=== PATIENT | female | born 1975 | race Caucasian/White ===

== ENCOUNTER 2019-12-25 12:14 | Outpatient (REF) | payer OTHER, SELFPAY ==
[2019-12-25 12:54] LABS: COVID-19 Test Negative (Negative)
== END 2019-12-25 12:15 | disposition home or self-care (01) ==
LOC: HO.LAB 12:14
PROVIDERS: Visit Provider Internal Medicine
DX: Z20.828 Contact with and (suspected) exposure to other viral communicable diseases (principal)
CPT/HCPCS: 87635

== ENCOUNTER 2019-12-31 15:26 | Outpatient (REF) | payer OTHER, SELFPAY ==
[2019-12-31 17:08] LABS: SARS COV2 PCR INHOUSE NEGATIVE (Negative)
== END 2019-12-31 15:27 | disposition home or self-care (01) ==
LOC: HO.LAB 15:26
PROVIDERS: Visit Provider Internal Medicine
DX: Z20.828 Contact with and (suspected) exposure to other viral communicable diseases (principal)
CPT/HCPCS: 87635

== ENCOUNTER 2020-01-03 09:54 | Outpatient (REF) | payer OTHER, SELFPAY ==
[2020-01-03 10:12] LABS: COVID-19 Test Negative (Negative)
== END 2020-01-03 09:55 | disposition home or self-care (01) ==
LOC: HO.LAB 09:54
PROVIDERS: Visit Provider Internal Medicine
DX: Z20.828 Contact with and (suspected) exposure to other viral communicable diseases (principal)
CPT/HCPCS: 87635

== ENCOUNTER 2020-02-10 15:39 | Outpatient (REF) | payer OTHER, SELFPAY ==
[2020-02-10 17:10] LABS: COVID-19 Test Negative (Negative)
== END 2020-02-10 15:40 | disposition home or self-care (01) ==
LOC: HO.EMPCOV 15:39
PROVIDERS: Visit Provider Internal Medicine
DX: Z20.828 Contact with and (suspected) exposure to other viral communicable diseases (principal)
CPT/HCPCS: 87635; C9803

== ENCOUNTER 2020-02-16 10:52 | Outpatient (REF) | payer OTHER, SELFPAY ==
[2020-02-16 11:17] LABS: COVID-19 Test Negative (Negative)
== END 2020-02-16 10:53 | disposition home or self-care (01) ==
LOC: HO.EMPCOV 10:52
PROVIDERS: Visit Provider Internal Medicine
DX: Z20.828 Contact with and (suspected) exposure to other viral communicable diseases (principal)
CPT/HCPCS: 87635; C9803

== ENCOUNTER 2020-02-16 14:36 | Outpatient (REF) | payer OTHER, SELFPAY | END 2020-02-16 14:37 | disposition home or self-care (01) | LOC: HO.LNP 14:36 | PROVIDERS: Visit Provider Physician Assistant | DX: J02.9 Acute pharyngitis, unspecified (principal) | CPT/HCPCS: 87071; 87880 ==

== ENCOUNTER 2021-03-14 14:02 | Outpatient (REF) | payer OTHER, SELFPAY ==
[2021-03-14 14:27] LABS: COVID-19 Test Negative (Negative)
== END 2021-03-14 14:03 | disposition home or self-care (01) ==
LOC: HO.LAB 14:02
PROVIDERS: Visit Provider Internal Medicine
DX: Z20.822 Contact with and (suspected) exposure to COVID-19 (principal)
CPT/HCPCS: 36415; 87635

== ENCOUNTER 2021-11-10 15:09 | Outpatient (REF) | payer OTHER, SELFPAY ==
--- NOTE | ~2021-11-10 | XR_ITS ---
EXAMINATION: XR FOOT, RIGHT CLINICAL INFORMATION: Pain COMPARISON: None TECHNIQUE: AP, lateral, and oblique views of the right foot. FINDINGS: Bone alignment is normal. There is a nondisplaced fracture of the proximal phalanx of the fifth toe. No other fracture is seen. Joint spaces are normal. Soft tissues are normal. XR/XR foot RT min 3V IMPRESSION: Nondisplaced fracture through the proximal phalanx of the fifth toe. 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
== END 2021-11-10 15:10 | disposition home or self-care (01) ==
LOC: HO.XRAY 15:09
PROVIDERS: PCP Nurse Practitioner Family; Visit Provider Nurse Practitioner Family
DX: M79.671 Pain in right foot (principal)
CPT/HCPCS: 73630

== ENCOUNTER 2022-04-06 10:16 | Outpatient (REF) | payer OTHER, SELFPAY ==
--- NOTE | ~2022-04-06 | FL_ITS ---
EXAMINATION: FL BARIUM SWALLOW CLINICAL INFORMATION: Dysphagia COMPARISON: None TECHNIQUE: Barium swallow examination is performed using fluoroscopic evaluation in addition to multiple fluoroscopic spot views. The patient is imaged both upright and prone and using both thick and thin sulfate along with effervescent granules. Fluoroscopy time: 1.8 minutes DAP: 11.569 Gycm2 Images: 71 FINDINGS: There is normal oral bolus control and transfer. Normal posterior tilt of the epiglottis with elevation of the hyoid. No cricopharyngeal abnormality. The 13 mm barium tablet was swallowed without difficulty, freely passing into the stomach. The esophagus was normal in course, caliber, and contour. There was normal distensibility with no fixed segment of narrowing. No focal mucosal abnormality was identified. Mild esophageal dysmotility was observed. Contrast passed freely across the gastroesophageal junction into the stomach. No significant hiatal hernia. No gastroesophageal reflux was observed. FL/FL barium swallow IMPRESSION: Mild esophageal dysmotility is visualized. Otherwise unremarkable esophagram.
== END 2022-04-06 10:17 | disposition home or self-care (01) ==
LOC: HO.XRAY 10:16
PROVIDERS: PCP Nurse Practitioner Family; Visit Provider Physician Assistant
DX: R13.10 Dysphagia, unspecified (principal)
CPT/HCPCS: 74220

== ENCOUNTER 2022-04-20 11:00 | Outpatient (REF) | payer OTHER, SELFPAY ==
--- NOTE | ~2022-04-20 | XR_ITS ---
EXAMINATION: XR LUMBOSACRAL SPINE CLINICAL INFORMATION: Back ache. COMPARISON: CT scan of the abdomen and pelvis dated 10/18/2018. TECHNIQUE: Three views of the lumbosacral spine. FINDINGS: The vertebral bodies and posterior elements are normal. The disc spaces are preserved and the vertebral alignment is normal. The paraspinal soft tissues are normal. XR/XR lumbar spine 2-3V IMPRESSION: Unremarkable lumbar spine.
== END 2022-04-20 11:01 | disposition home or self-care (01) ==
LOC: HO.XRAY 11:00
PROVIDERS: PCP Nurse Practitioner Family; Visit Provider Nurse Practitioner Family
DX: M54.9 Dorsalgia, unspecified (principal)
CPT/HCPCS: 72100

== ENCOUNTER 2022-05-17 08:34 | Day surgery (SDC) | payer OTHER, SELFPAY ==
[2022-05-12 11:07] VITALS: BMI 29.2
--- NOTE | 2022-05-16 12:16 | HO.ANESPROP2 ---
Documented by User: Mary Martel NP 05/16/22 12:16 HPI - Anesthesia Eval Consult details Narrative: 46yo F for Upper Endoscopy COUNT INCLUDES THE [facility] Active Problems Active Problems: All Active Problems (Updated 05/12/22 @ 11:06 by Chelsea Rogers RN) Dysphagia (Acute) Acid reflux (Acute) Past Medical History Medical History Dysphagia GERD (gastroesophageal reflux disease) History of colitis Surgical History Surgical History History of carpal tunnel release of both wrists History of meniscectomy of left knee History of repair of anterior cruciate ligament of left knee Hx of colonoscopy Social History Social History Household Members Other:: , 21 y/o daughter Alcohol intake: current Patient Tobacco Use Status: Former Tobacco user Quit Date: 15 yrs ago Use of substances other than those prescribed or required for medical reasons: No Are you DNR?: No Advance Directives: No Advance Directives Information Provided: Yes Current occupational status: employed 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[employer] 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 Allergies Allergy/AdvReac Type Severity Reaction Status Date / Time Penicillins Allergy Mild RASH Verified 05/17/22 08:50 Sulfa (Sulfonamide Allergy Mild Rash Verified 05/17/22 08:50 Antibiotics) sulfamethoxazole Allergy Mild RASH Verified 05/17/22 08:50 [From Bactrim] trimethoprim [From Bactrim] Allergy Mild RASH Verified 05/17/22 08:50 vancomycin Allergy Unknown Unknown Verified 05/17/22 08:50 Exam Exam Date and Time: May 16, 2022 1216 Height,Weight and Vital Signs: Height 5 ft 4 in Weight 77.111 kg Assessment and Plan Assessment Anesthesia Assessment: Chart Reviewed Documented by User: Rosario Petty MD 05/17/22 10:17 COUNT INCLUDES THE [facility] Past Medical History Medical History Dysphagia GERD (gastroesophageal reflux disease) History of colitis Family History Family history of problems with anesthesia: No Surgical History Surgical History History of carpal tunnel release of both wrists History of meniscectomy of left knee History of repair of anterior cruciate ligament of left knee Hx of colonoscopy History of Problems with Anesthesia: No Social History Social History Household Members Other:: , 21 y/o daughter Alcohol intake: current Patient Tobacco Use Status: Former Tobacco user Quit Date: 15 yrs ago Use of substances other than those prescribed or required for medical reasons: No Are you DNR?: No Advance Directives: No Advance Directives Information Provided: Yes Current occupational status: employed 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[employer] Allergies Allergy/AdvReac Type Severity Reaction Status Date / Time Penicillins Allergy Mild RASH Verified 05/17/22 08:50 Sulfa (Sulfonamide Allergy Mild Rash Verified 05/17/22 08:50 Antibiotics) sulfamethoxazole Allergy Mild RASH Verified 05/17/22 08:50 [From Bactrim] trimethoprim [From Bactrim] Allergy Mild RASH Verified 05/17/22 08:50 vancomycin Allergy Unknown Unknown Verified 05/17/22 08:50 Exam Height,Weight and Vital Signs: Height 5 ft 4 in Weight 77.111 kg Vital Signs Temp Pulse Resp BP Pulse Ox O2 Del Method 05/17/22 09:11 97.9 F 74 15 144/93 H 97 Room Air Pertinent Lab Results Pertinent Lab Results: Lab Results 05/17/22 Range/Units 08:50 Urine Test NEGATIVE (NEGATIVE) Airway Mallampati Class: II TM Dist: >3cm Neck ROM: Full Loose/Missing/Broken Teeth: No (Cap bottom front. Denies broken, loose, missing teeth) Heart: RRR Lungs: CTAB Assessment and Plan Assessment Anesthesia Assessment: Anesthesia Plan Discussed Final Anesthetic Review Family History of Problems with Anesthesia: No History of Problems with Anesthesia: No NPO: Yes ASA Class: II Final Preanesthetic Review: No Changes in Pt Med Stat, Meds/Allgs Chart Reviewed, Consent Obtained/Reviewed and Anes Risks/Benef Reviewed Patient Risk: Low Procedure Risk: Low Assessment/Block/Sedation in SS: Assess/Block/Sedation-SS Anesthetic Plan Anesthetic Plan: MAC: Disposition: Standard PACU
[2022-05-17 08:58] LABS: UPreg QC Valid YES; Urine Pregnancy NEGATIVE (NEGATIVE)
[2022-05-17 09:11] VITALS: BP 144/93; PULSE 74; RESP 15; TEMP 36.6; O2SAT 97
[2022-05-17] MEDS: Lactated Ringers 1,000 ML 100 ML IVCONT (09:18)
--- NOTE | 2022-05-17 10:15 | MHC.SHP ---
Pre-Procedural Eval Section A Date of Service: 05/17/22 Section B Chief Complaint: Dysphagia Relevant Family History (Specify if Yes): No Relevant Social History: None Present Medications: see Short Stay Collaborative assessment Medical History: No relevant PMH History of Previous Operations: No relevant previous surgery Allergies: Allergies Allergy/AdvReac Type Severity Reaction Status Date / Time Penicillins Allergy Mild RASH Verified 05/17/22 08:50 Sulfa (Sulfonamide Allergy Mild Rash Verified 05/17/22 08:50 Antibiotics) sulfamethoxazole Allergy Mild RASH Verified 05/17/22 08:50 [From Bactrim] trimethoprim [From Bactrim] Allergy Mild RASH Verified 05/17/22 08:50 vancomycin Allergy Unknown Unknown Verified 05/17/22 08:50 Review of Systems Review of Systems Comment: 10 point ROS negative except difficulty swallowing Exam Exam Comment: Gen appear: No acute distress HEENT: no icterus Chest: No overt resp distress Abd: soft, nontender, nondistended Psych: Stable affect, answering questions appropriately Neuro: A/Ox3 noted to move all extremities spontaneously Ext: no peripheral edema Plan Diagnosis/Plan: Unchanged I have reviewed the history and physical and performed a pertinent physical examination on my patient. No changes have occurred unless specified. Time Spent With Patient Time: Total time managing care of this patient today ____ minutes.
[2022-05-17 10:40] VITALS: BP 119/67; PULSE 71; RESP 12; TEMP 36.4; O2SAT 94
--- NOTE | 2022-05-17 10:52 | P.OP_ITS ---
Operative Note Operative Note Date of Service: 05/17/22 Narrative: Procedure: Esophagogastroduodenoscopy Endoscopist: Lacie Calabrese MD Indication: Dysphagia Anesthesia Provider: Daysi Wong CRNA Anesthesia Type: MAC ?? EGD Procedure:?? The procedure, indications, preparation and potential complications were reviewed with the patient, who indicated understanding and gave written informed consent to proceed. A physical exam was performed. The endoscope was introduced through the mouth, and advanced to the second part of duodenum. The mucosa was carefully examined on slow withdrawal of the endoscope. The patient tolerated the procedure well. There were no immediate complications.? ? EGD Findings:? * Esophagus:? Normal mucosa noted in the entire esophagus. The Z line was at 36cm. Middle and lower esophagus forceps biopsies were obtained to rule out eosinophilic esophagitis. * Stomach:? Normal mucosa was noted in the stomach. Random gastric biopsies were taken to rule out H Pylori infection. * Duodenum:? Normal mucosa was noted in the whole of the examined duodenum. Additional intervention: Soft tip Savary wire was introduced through the biopsy channel of the gastroscope and advanced to the antrum. The endoscope was then withdrawn and Savary Chris bougie was advanced over the wire. The esophagus was serially dilated from 18 mm to 19 mm. On relook, there was a small tear at 25 cm confirming successful dilation. EGD Impressions:? * Cricopharyngeal stenosis ( dilation) * Normal esophageal mucosa (biopsy) * Normal stomach (biopsy) * Normal duodenum ?? Recommendations:?? * Follow biopsy results. Our office will call or send a letter with results within 7-10 days. * Magic mouthwash to be taken p.r.n. for the next 2-3 days for any discomfort post dilation * If H pylori +, patient will be prescribed eradication therapy followed by test of cure. * Avoid NSAIDs. Above has been reviewed with the patient. Relevant educational hand outs were provided at discharge. ?
[2022-05-17 10:55] VITALS: BP 127/73; PULSE 68; RESP 16; O2SAT 97
[2022-05-17 11:05] VITALS: BP 127/73; PULSE 67; RESP 16; TEMP 36.6; O2SAT 97
== END 2022-05-17 11:38 | disposition home or self-care (01) ==
PROVIDERS: Nurse Practitioner; PCP Nurse Practitioner Family; Visit Provider Internal Medicine
PROC: 0DJ08ZZ Inspection of Upper Intestinal Tract, Via Natural or Artificial Opening Endoscopic (ICD-10-PCS; CPT 43235; principal; 2022-05-17 09:50)
DX: R13.10 Dysphagia, unspecified (principal); K22.2 Esophageal obstruction; K21.9 Gastro-esophageal reflux disease without esophagitis; Z79.82 Long term (current) use of aspirin; Z88.0 Allergy status to penicillin; Z88.1 Allergy status to other antibiotic agents; Z88.2 Allergy status to sulfonamides; Z87.891 Personal history of nicotine dependence
CPT/HCPCS: 43248; 43239; 81025; 88305; 88342; C1769; J2250

== ENCOUNTER → 2022-06-01 11:28 | Outpatient (BNVA) | payer OTHER, SELFPAY | PROVIDERS: PCP Nurse Practitioner Family; Visit Provider Physician Assistant | DX: Z13.89 Encounter for screening for other disorder (principal) ==

== ENCOUNTER 2022-09-28 14:00 | Outpatient (RCR) | payer OTHER, SELFPAY | END 2022-11-01 15:43 | disposition home or self-care (01) | LOC: HO.PT 14:00 | PROVIDERS: PCP Nurse Practitioner Family; Visit Provider Physician Assistant Surgical | DX: M70.61 Trochanteric bursitis, right hip (principal) | CPT/HCPCS: 97110; 97140; 97161 ==

== ENCOUNTER 2023-03-31 08:11 | Emergency (ER) | payer OTHER, SELFPAY ==
[2023-03-31 08:20] VITALS: BP 124/106; PULSE 84; RESP 16; TEMP 36.7; O2SAT 96; BMI 30.6
--- NOTE | 2023-03-31 08:20 | ED.ABDPAIN ---
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 States feels similar to previous episode of colitis and states I wanted to come in and get treated so it does not get out of control like last time. No vomiting, fevers, urinary symptoms. Prior to this episode she did have some constipation the last few days with straining. Denies recent travel, recent antibiotic use. No AC therapy. Last colonoscopy several years ago, per patient normal. Followed by GI ([facility]) Related Data Previous Rx's Medication Instructions Recorded pantoprazole 20 mg tablet,delayed 40 mg (2 x 20 mg) PO ONCE 30 days 02/16/22 release #60 tabs sucralfate 1 gram tablet 1 g PO QIDACHS PRN reflux 21 days 05/02/22 #90 tabs Magic Mouthwash 10 ml PO TID PRN throat discomfort 05/17/22 Diphen/Lido/Antacid 1:1:1 240 mL #90 mL suspension ciprofloxacin HCl 500 mg tablet 500 mg PO BID #10 tabs 03/31/23 (Cipro) metronidazole 500 mg tablet 500 mg PO Q8H 10 days #30 tabs 03/31/23 oxycodone 5 mg tablet 5 mg PO Q8H PRN pain #6 tabs 03/31/23 Allergies Allergy/AdvReac Type Severity Reaction Status Date / Time Penicillins Allergy Mild RASH Verified 06/01/22 11:37 Sulfa (Sulfonamide Allergy Mild Rash Verified 06/01/22 11:37 Antibiotics) sulfamethoxazole Allergy Mild RASH Verified 06/01/22 11:37 [From Bactrim] trimethoprim [From Bactrim] Allergy Mild RASH Verified 06/01/22 11:37 vancomycin Allergy Unknown Unknown Verified 06/01/22 11:37 Review of Systems Review of Systems Yes all other systems are reviewed and are negative Constitutional: Reports no additional constitutional complaints, Denies body ache(s), Denies chills, Denies fever(s), Denies headache(s) and Denies weakness Eyes: Reports no additional eye complaints and Denies change in vision Reports system reviewed and no additional complaints, except as documented, Denies dizziness, Denies headache(s), Denies nasal congestion, Denies nasal discharge and Denies neck pain Cardiovascular: Reports no additional cardiovascular complaints, Denies chest pain, Denies leg edema and Denies dyspnea Respiratory: Reports no additional respiratory complaints, Denies cough and Denies dyspnea Gastrointestinal: Reports no additional gastrointestinal complaints, Reports abdominal pain, Denies melena, Reports hematochezia, Reports diarrhea, Reports nausea and Denies vomiting Genitourinary: Reports no additional female genitourinary complaints and Denies urinary incontinence Musculoskeletal: Reports no additional musculoskeletal complaints, Denies back pain, Denies arthralgias, Denies joint swelling, Denies neck pain, Denies numbness and Denies tingling Skin/Breast: Reports system reviewed and no additional complaints, except as docu and Denies rash Reports system reviewed and no additional complaints, except as documented, Denies Abnormal speech present, Denies dizziness, Denies headache(s), Denies numbness, Denies tingling and Denies weakness PMFSH Past Medical History Attestation statement: The following information was validated with the patient. Source: old records reviewed and nursing notes reviewed Onset Date is defined in the Problem List Problems that require an onset date and time if occurred within 24 hrs of arrival to the ED Aortic Dissection and Rupture; Neurologic impairment; Cardiopulmonary Arrest; Endotracheal Intubation; Insertion or Replacement of Mechanical Circulatory Assist Device Medical History History of colitis Dysphagia GERD (gastroesophageal reflux disease) Surgical History History of esophagogastroduodenoscopy (EGD) History of carpal tunnel release of both wrists History of repair of anterior cruciate ligament of left knee History of meniscectomy of left knee Hx of colonoscopy Social History Social History Household Members Other:: , 21 y/o daughter Alcohol intake: current Patient Tobacco Use Status: Former Tobacco user Quit Date: 15 yrs ago Advance Directives: No Advance Directives Information Provided: Yes Current occupational status: employed 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[employer] Physical Exam ED Vital Signs: Vital Signs - 24 hr 03/31/23 08:20 Temperature 98.0 F Pulse Rate 84 Respiratory Rate 16 Blood Pressure 124/106 H Pulse Oximetry 96 Oxygen Delivery Method Room Air BMI result Body Mass Index 30.6 Const General: cooperative, healthy appearing, comfortable and no acute distress Orientation/consciousness: patient oriented x3 Limitations: no limitations HENMT Head: Yes normal to inspection Ears: hearing grossly normal bilaterally General nose exam: Normal external nose present Face and sinus: Yes normal facial exam Mouth: Normal oral and palatal mucosa present Throat: Yes posterior oropharynx normal Eyes General: appearance normal, both eyes and all related structures Pupils: Equal, round and reactive pupils present Neck Neck: Yes normal visual inspection Chest Chest palpation & inspection: normal inspection of the chest Resp Effort & Inspection: normal respiratory effort Auscultation: clear to auscultation bilaterally Cardio Rate: regular rate Rhythm: regular rhythm Peripheral pulses: Peripheral pulses 2+ throughout GI Inspection: Yes normal to inspection Palpation (GI): Soft to palpation, Tenderness to palpation present (GI) in the LLQ; with no rebound tenderness and no guarding Auscultation: normal bowel sounds Back/Spine/Pelvis Thoracic/Lumbar Spine: thoracic and lumbar spine normal to inspection Skin General skin exam: no rashes or lesions noted Neuro General: patient oriented x3, no focal motor deficits and normal sensation to monofilament Cranial nerves: Yes Equal, round and reactive pupils present Cognition (Neuro): normal cognition Speech: No Abnormal speech present Gait exam (Neuro): Normal gait present Motor exam (neuro): 5/5 motor strength present throughout Extrem General: Yes normal to inspection Course Course Course Narrative: 0930-labs show mild leukocytosis with no shift. Mildly elevated LFTs unchanged from baseline. Lactic is negative. Discussed findings with patient. Patient reports feels very similar to previous colitis episodes. I have low suspicion for ischemic colitis, bowel obstruction, appendicitis, perforation or abscess. We did discuss imaging but at this time patient does not desire to have a CT of the abdomen and pelvis. She feels that her pain is mild and she can return for any worsening signs or symptoms. She does have shank turner outpatient and is planning for a outpatient routine colonoscopy. I recommended she follow-up closely with them and return here for any change in her symptoms. 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 States feels similar to previous episode of colitis and states I wanted to come in and get treated so it does not get out of control like last time. No vomiting, fevers, urinary symptoms. Prior to this episode she did have some constipation the last few days with straining.? Denies recent travel, recent antibiotic use.? No AC therapy. Mild TTP to LLQ with no rebound or guarding VSS Will obtain labs, UA, give IVF. Patient feels she does not need analgesia at this time. We discussed imaging. At this time patient would like to hold on a CT, we will re-visit this when we get her labs back Differential Diagnosis Differential Diagnoses: The differential diagnosis associated with the presentation includes colitis low concern for ischemic colitis, diverticulitis, infectious diarrhea, appendicitis Admission/Observation Consideration of admission/observation: Escalation of care including admission/observation considered low suspicion for a surgical abdomen, active GIB requiring further imaging, surgery or GI consultation and or admission Lab Data [facility] Lab Attestation statement: I reviewed the patient's lab results. mild leukocytosis, mildly elevated LFTS (unchanged from baseline) 03/31/23 08:49 03/31/23 08:49 Labs: Lab Results 03/31/23 Range/Units 08:49 WBC 15.1 H (4.8-10.8) X10*3/uL RBC 4.72 (4.20-5.50) X10*6/uL Hgb 14.3 (12.0-16.0) g/dl Hct 42.6 (37.0-47.0) % MCV 90.3 (80.0-98.0) fL MCH 30.3 (27.0-33.0) pg MCHC 33.6 (31.0-35.0) g/dl RDW 12.2 (11.0-16.0) % Plt Count 342 (160-400) X10*3/uL MPV 9.0 L (9.4-12.3) fL Immature Gran % (Auto) 0.4 (0.0-0.4) % Neut % (Auto) 73.8 H (45-73) % Lymph % (Auto) 19.1 L (20-40) % [place] % (Auto) 5.9 (2-11) % Eos % (Auto) 0.5 (0-4) % Baso % (Auto) 0.3 (0-2) % Lymph # (Auto) 2.9 (1.2-4.9) X10*3/uL [place] # (Auto) 0.9 (0.1-1.2) X10*3/uL Eos # (Auto) 0.1 (0.0-0.4) X10*3/uL Baso # (Auto) 0.0 (0.0-0.2) X10*3/uL Abs Immat Gran (auto) 0.06 H (0.00-0.03) X10*3/uL Absolute Neuts (auto) 11.2 H (2.0-8.3) x10*3/uL Absolute Nucleated RBC 0.000 (0.0-0.012) X10*3/uL Nucleated RBC % (auto) 0.0 (0.0-0.2) /100WBC Sodium 138 (135-145) mmol/L Potassium 3.8 (3.3-5.1) mmol/L Chloride 103 (96-108) mmol/L Carbon Dioxide 25 (22-29) mmol/L Anion Gap 14 (12-20) BUN 11 (9-16) mg/dL Creatinine 0.77 (0.5-1.4) mg/dL Estim Creat Clear Calc 94.8 Estimated GFR > 60 Random Glucose 110 (60-115) mg/dL Lactic Acid 1.0 (0.5-2.0) mmol/L Calcium 9.9 (8.4-10.2) mg/dL Total Bilirubin 0.4 (0.0-1.0) mg/dL AST 25 (5-31) U/L ALT 36 H (0-31) U/L Alkaline Phosphatase 34 L (39-117) U/L Total Protein 7.5 (6.5-8.0) g/dL Albumin 4.0 (3.5-5.0) g/dL Lipase 31 (8-78) U/L Beta HCG, Quant < 2 mIU/mL External Record Review External record reviewed: Outpatient record Tests considered The following testing was considered but not selected: ct abdomen/pelvis-see discursion in course Prescription Management I considered prescription management with: Pain Medication and Antibiotic Medications Administered Discontinued Medications Generic Name Dose Route Start Last Admin Trade Name Freq PRN Reason Stop Dose Admin Sodium Chloride 1,000 mls @ 999 mls/hr 03/31/23 08:25 03/31/23 10:04 Ns IV 03/31/23 09:25 Infused .Q1H1M STA Infusion Discharge Plan Discharge Clinical Impression: Colitis Patient Disposition: Home, Self-Care Instructions: Colitis (ED) Additional Instructions: We discussed obtaining a CT scan of your abdomen/pelvis and decided to hold at this time. If you develop fever, vomiting, worsening pain or increasing bloody stools please return as discussed Increase fluids at home Follow-up with your shank turner Prescriptions: New metronidazole 500 mg tablet 500 mg PO Q8H 10 Days Qty: 30 0RF ciprofloxacin HCl [Cipro] 500 mg tablet 500 mg PO BID Qty: 10 0RF oxycodone 5 mg tablet 5 mg PO Q8H PRN (Reason: pain) Qty: 6 0RF Rx Instructions: Partial Fill upon patient request. No Action sucralfate 1 gram tablet 1 g PO QIDACHS PRN (Reason: reflux) 21 Days Qty: 90 1RF Magic Mouthwash Diphen/Lido/Antacid 1:1:1 240 mL suspension 10 ml PO TID PRN (Reason: throat discomfort) Qty: 90 0RF Rx Instructions: Lidocaine Viscous 2 % 80mL; diphenhydramine 12.5 mg/5 mL 80mL; aluminum-mag hydrox-simeth [id number]/5mL 80mL pantoprazole 20 mg tablet,delayed release (DR/EC) 40 mg PO ONCE 30 Days Qty: 60 6RF Referrals: Jacy Nascimento PA-C [Physician Nurse Practitioner Manager] - 2 weeks
[2023-03-31 08:52] LABS: MANUAL DIFF FLAG NO
[2023-03-31 08:56] LABS: Basophils Percent Auto 0.3 % (0-2); Eosinophils Absolute Auto 0.1 X10*3/uL (0.0-0.4); Eosinophils Percent Auto 0.5 % (0-4); Hematocrit 42.6 % (37.0-47.0); Hemoglobin 14.3 g/dl (12.0-16.0); Imm Gran Abs Auto 0.06 X10*3/uL (0.00-0.03); Imm Gran Pct Auto 0.4 % (0.0-0.4); Lymphocytes Absolute Auto 2.9 X10*3/uL (1.2-4.9); Lymphocytes Percent Auto 19.1 % (20-40); Mean Corpuscular HGB Conc 33.6 g/dl (31.0-35.0); Mean Corpuscular Hemoglobin 30.3 pg (27.0-33.0); Mean Corpuscular Volume 90.3 fL (80.0-98.0); Monocytes Absolute Auto 0.9 X10*3/uL (0.1-1.2); Monocytes Percent Auto 5.9 % (2-11); Neutrophils Absolute Auto 11.2 x10*3/uL (2.0-8.3); Neutrophils Percent Auto 73.8 % (45-73); Platelet Count 342 X10*3/uL (160-400); Red Blood Count 4.72 X10*6/uL (4.20-5.50); Red Cell Distribution Width 12.2 % (11.0-16.0); White Blood Count 15.1 X10*3/uL (4.8-10.8)
[2023-03-31] MEDS: 0.9 % Sodium Chloride 1,000 ML 999 ML IV (08:58)
[2023-03-31 09:15] LABS: Alanine Aminotransferase 36 U/L (0-31); Alkaline Phosphatase 34 U/L (39-117); Anion Gap 14 (12-20); Aspartate Amino Transferase 25 U/L (5-31); Bilirubin Total 0.4 mg/dL (0.0-1.0); Blood Urea Nitrogen 11 mg/dL (9-16); Calcium 9.9 mg/dL (8.4-10.2); Carbon Dioxide 25 mmol/L (22-29); Chloride 103 mmol/L (96-108); Creatinine Clr Calc Pharmacy 94.8; Estimated Glomerular Filt Rate > 60; Glucose Random 110 mg/dL (60-115); HCG Quantitative < 2 mIU/mL; Lipase 31 U/L (8-78); Potassium 3.8 mmol/L (3.3-5.1); Sodium 138 mmol/L (135-145); Total Protein 7.5 g/dL (6.5-8.0)
== END 2023-03-31 10:42 | disposition home or self-care (01) ==
PROVIDERS: Nurse Practitioner Family; Emergency Provider Student in an Organized Health Care Education/Training Program; PCP Nurse Practitioner Family
DX: K52.89 Other specified noninfective gastroenteritis and colitis (principal); R10.32 Left lower quadrant pain; K21.9 Gastro-esophageal reflux disease without esophagitis
CPT/HCPCS: 36415; 80053; 83605; 83690; 84702; 85025; 96360; 99284

== ENCOUNTER 2023-05-03 07:27 | Outpatient (AMB) | payer OTHER, SELFPAY ==
--- NOTE | 2023-05-03 07:31 | MHC.OFFVIS ---
Intake Vital Signs 05/03/23 07:32 Height 5 ft 4 in Weight 171 lb BMI 29.3 BP 120/65 Blood Pressure Location Lt brachial Position Sitting Pulse 79 Intake Visit Reasons: ER follow up Colitis Intake Note: Patient follow up for Colitis Patient denies any GI issues. 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 Accompanied by: Self / Same As Patient Allergies Penicillins Allergy (Mild, Verified 05/03/23 07:30) RASH Sulfa (Sulfonamide Antibiotics) Allergy (Mild, Verified 05/03/23 07:30) Rash sulfamethoxazole [From Bactrim] Allergy (Mild, Verified 05/03/23 07:30) RASH trimethoprim [From Bactrim] Allergy (Mild, Verified 05/03/23 07:30) RASH vancomycin Allergy (Unknown, Verified 05/03/23 07:30) Unknown Medication List - Last Reconciled 05/03/23 by Jacy Nascimento PA-C pantoprazole 40 mg (2 x 20 mg) PO ONCE 30 days sucralfate 1 g PO QIDACHS PRN 21 days HPI HPI Comments History of Present Illness Details A 47 y/o female- Ozempic- 6 wks ago-seemed to get constipation- however coloace QOD- good response- she then had LLQ abbdominal pain with bloody mucous stool-she had declined CT as her symptoms have exactly she previously was diagnosed with colitis 03/31/23-Seen in ED- Tx- flaggyl/ cipro- asymptomatic- continues w/ colace QOD- still on Ozempic- has lost about 10 pounds- She does admit to some work stress however she will be going per day him soon She has no nausea, vomiting, hematemesis, hematochezia , abdominal pain fever or chills Colonoscopy has been scheduled- Recap ED note a history of colitis several years ago which required admission to pain control and eventually improved with oral antibiotics here with complaints of waking with LLQ abdominal pain with several episodes of mucous/bloody diarrhea and nausea. States feels similar to previous episode of colitis and states I wanted to come in and get treated so it does not get out of control like last time. No vomiting, fevers, urinary symptoms. Prior to this episode she did have some constipation the last few days with straining.? Denies recent travel, recent antibiotic use.? No AC therapy. Mild TTP to LLQ with no rebound or guarding VSS Will obtain labs, UA, give IVF. Patient feels she does not need analgesia at this time. We discussed imaging. At this time patient would like to hold on a CT, we will re-visit this when we get her labs back [facility] Medical History (Updated 05/03/23 @ 12:42 by Jacy Nascimento PA-C) History of colitis Dysphagia GERD (gastroesophageal reflux disease) Surgical History History of esophagogastroduodenoscopy (EGD) History of carpal tunnel release of both wrists History of repair of anterior cruciate ligament of left knee History of meniscectomy of left knee Hx of colonoscopy Social History Household Members Other:: , 21 y/o daughter Alcohol intake: current Patient Tobacco Use Status: Former Tobacco user Quit Date: 15 yrs ago Current occupational status: employed 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[employer] Review of Systems Const All systems reviewed & are unremarkable except as noted in HPI and below Card Denies chest pain and Denies dyspnea Resp Denies dyspnea GI Denies abdominal pain, Denies GI cramping, Denies nausea and Denies vomiting Physical Exam Vital Signs: Last Vital Signs Pulse 79 05/03/23 07:32 BP 120/65 05/03/23 07:32 BMI result Body Mass Index 29.3 Const General: cooperative, healthy appearing and comfortable Orientation/consciousness: patient oriented x3 Limitations: no limitations Eyes Sclerae: sclerae normal Resp Effort & Inspection: normal respiratory effort and able to speak in complete sentences Auscultation: clear to auscultation bilaterally Cardio Rate: regular rate Rhythm: regular rhythm Heart sounds: S1 normal heart sound present Neuro General: patient oriented x3 Extrem General: Yes full ROM Psych Appearance: grossly normal and well kempt Mental Status: mental status grossly normal Speech and movement: Normal speech and movement present and Clear speech present Affect: normal affect Attitude: cooperative Thought process: Normal thought process present Thought content: Normal thought content present Insight: Good insight present (Psych) Judgement: Good judgement present (Psych) Results Reviewed Results Reviewed: Name: Angelita Barr Age/Sex: 46/F Attending: Lacie Calabrese MD : 1975 Submitted by: Lacie Calabrese MD Copies to: GEORGE ROMERO NP MR #: [id number] Status: [facility] Collected: 05/17/22 Location: [facility] Received: 05/17/22 Diagnosis A. Stomach, random, biopsy: Antral-type and oxyntic mucosa with mild chronic inactive inflammation; no Helicobacter organisms seen. B. Esophagus, lower, biopsy: Squamous mucosa within normal limits; no inflammation seen; negative for eosinophilic esophagitis. C. Esophagus, mid, biopsy: Squamous epithelium within normal limits; no inflammation seen; negative for eosinophilic esophagitis. Clinical History Pre-Op Dx: Aphagia, reflux Post-Op Dx: Upper esophageal sphincter stenosis Microscopic Description A-C. Microscopic sections reviewed. Immunostain for H. pylori is non-reactive (A). Material Received A: Random gastric bx's r/o H. pylori B: Lower esophagus bx's r/o eoe C: Mid esophagus bx's Gross Description Received in three parts. Part A: Received in formalin labeled Random gastric bx's, r/o H. pylori are four glistening, semitranslucent, aldana-pink, irregular and rectangular tissue fragments, ranging from 0.25 to 0.35 cm. in greatest dimension, which are submitted in toto in a single cassette labeled A. Part B: Received in formalin labeled Lower esophagus bx's are four glistening, semitranslucent, metcalf, white-pink irregular tissue fragments, ranging from 0.15 to 0.3 cm. in greatest dimension, which are submitted in toto in a single cassette labeled B. Part C: Received in formalin labeled Mid esophagus bx's are four glistening, semitranslucent, metcalf- white, irregular and rectangular tissue fragments, ranging from 0.25 to 0.3 cm. in greatest dimension, which are submitted in toto in a single cassette labeled C. CEDS Special studies ordered and performed: immunostain for H. pylori on A Patient: Cortney Age/Sex: 46/F MR#: [id number] Page 1 of 2 Assessment & Plan Assessment & Plan (1) Colitis: Comment: Very pleasant asymptomatic 47-year-old female previous diagnosis colitis-sx had recurred-nearly 2 years later Good historian Declined CT Treated Cipro Flagyl with very good for spoke Code(s): K52.9 - Noninfective gastroenteritis and colitis, unspecified Plan: She will continue to monitor for symptoms Colonoscopy as planned (2) History of colitis: Comment: Treated about 2 years ago Code(s): Z87.19 - Personal history of other diseases of the digestive system Plan: Treated Cipro Flagyl very good response Plan Will follow with colonoscopy-omit Ozempic dose 1 full week prior to procedure She will call with any questions or concerns Orders: Orders Erythrocyte Sedimentation Rate Today Z87.19 - Personal history of other diseases of the digestive system Complete Blood Count Auto Diff Today K52.9 - Noninfective gastroenteritis and colitis, unspecified Calprotectin, Fecal Today Z87.19 - Personal history of other diseases of the digestive system C Reactive Protein Today K52.9 - Noninfective gastroenteritis and colitis, unspecified Thyroid Stimulating Hormone Today Z87.19 - Personal history of other diseases of the digestive system Patient Instructions: Will follow with colonoscopy-she is aware Ozempic must be stopped 1 full week prior to procedure She will call with any questions or concerns Coding Level of Care Code Est Pt Level 4 (32506) Diagnoses Colitis K52.9 History of colitis Z87.19 Time Spent (min) 35
[2023-05-03 07:32] VITALS: BP 120/65; PULSE 79; BMI 29.3
== END 2023-05-03 08:44 | disposition home or self-care (01) ==
PROVIDERS: PCP Nurse Practitioner Family; Visit Provider Physician Assistant
DX: K52.9 Noninfective gastroenteritis and colitis, unspecified (principal); Z87.19 Personal history of other diseases of the digestive system
CPT/HCPCS: 99214

== ENCOUNTER → 2023-05-03 07:27 | Outpatient (BNVA) | payer OTHER, SELFPAY | PROVIDERS: PCP Nurse Practitioner Family; Visit Provider Physician Assistant ==

== ENCOUNTER 2023-07-12 11:51 | Day surgery (SDC) | payer OTHER, SELFPAY ==
[2023-07-10 10:55] VITALS: BMI 29.3
--- NOTE | 2023-07-11 08:29 | P.CONAN_ITS ---
Documented by User: Mary Martel NP 07/11/23 08:30 HPI - Anesthesia Eval Consult details Narrative: 48yo F for Colonoscopy Anesthesia Pre-Procedure Meds Is the patient on any of the following meds?: GLP1/DPP4 (Ozempic) PMFSH Active Problems Active Problems: All Active Problems History of colitis (Acute) Crohn's colitis (Acute) Abnormal findings on esophagogastroduodenoscopy (EGD) (Acute) Dysphagia (Acute) Acid reflux (Acute) Past Medical History Medical History History of colitis Dysphagia GERD (gastroesophageal reflux disease) Family History Family history of problems with anesthesia: No Surgical History Surgical History History of esophagogastroduodenoscopy (EGD) History of carpal tunnel release of both wrists History of repair of anterior cruciate ligament of left knee History of meniscectomy of left knee Hx of colonoscopy History of Problems with Anesthesia: No Social History Social History Household Members Other:: , 21 y/o daughter Alcohol intake: current Patient Tobacco Use Status: Former Tobacco user Quit Date: ~age 32 Tobacco use type: Cigarette Use of substances other than those prescribed or required for medical reasons: No Are you DNR?: No Advance Directives: No Advance Directives Information Provided: Yes Advance Directives on File: No Recently lost weight without trying: No Eating poorly because of decreased appetite: No Nutrition Risks: No Nutritional Risk Current occupational status: employed 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[employer] 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 Allergies Allergy/AdvReac Type Severity Reaction Status Date / Time Penicillins Allergy Mild RASH Verified 05/03/23 07:30 Sulfa (Sulfonamide Allergy Mild Rash Verified 05/03/23 07:30 Antibiotics) sulfamethoxazole Allergy Mild RASH Verified 05/03/23 07:30 [From Bactrim] trimethoprim [From Bactrim] Allergy Mild RASH Verified 05/03/23 07:30 vancomycin Allergy Unknown Unknown Verified 05/03/23 07:30 Home Medications ?Medication ?Instructions ?Recorded ?Confirmed ?Last Taken ?Type semaglutide 1 mg/dose (4 mg/3 mL) 1 mg subcut QWEEK 07/10/23 07/10/23 Unknown History subcutaneous pen injector (Ozempic) Exam Height,Weight and Vital Signs: Height 5 ft 4 in Weight 77.564 kg Assessment and Plan Assessment Anesthesia Assessment: Chart Reviewed Final Anesthetic Review Family History of Problems with Anesthesia: No History of Problems with Anesthesia: No Documented by User: Isabel Mancilla MD 07/12/23 13:14 [facility] Past Medical History Medical History History of colitis Dysphagia GERD (gastroesophageal reflux disease) Surgical History Surgical History History of esophagogastroduodenoscopy (EGD) History of carpal tunnel release of both wrists History of repair of anterior cruciate ligament of left knee History of meniscectomy of left knee Hx of colonoscopy Social History Social History Household Members Other:: , 21 y/o daughter Alcohol intake: current Patient Tobacco Use Status: Former Tobacco user Quit Date: ~age 32 Tobacco use type: Cigarette Use of substances other than those prescribed or required for medical reasons: No Are you DNR?: No Advance Directives: No Advance Directives Information Provided: Yes Advance Directives on File: No Recently lost weight without trying: No Eating poorly because of decreased appetite: No Nutrition Risks: No Nutritional Risk Current occupational status: employed 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[employer] Allergies Allergy/AdvReac Type Severity Reaction Status Date / Time Penicillins Allergy Mild RASH Verified 05/03/23 07:30 Sulfa (Sulfonamide Allergy Mild Rash Verified 05/03/23 07:30 Antibiotics) sulfamethoxazole Allergy Mild RASH Verified 05/03/23 07:30 [From Bactrim] trimethoprim [From Bactrim] Allergy Mild RASH Verified 05/03/23 07:30 vancomycin Allergy Unknown Unknown Verified 05/03/23 07:30 Home Medications ?Medication ?Instructions ?Recorded ?Confirmed ?Last Taken ?Type semaglutide 1 mg/dose (4 mg/3 mL) 1 mg subcut QWEEK 07/10/23 07/10/23 Unknown History subcutaneous pen injector (Ozempic) Exam Airway Mallampati Class: II Neck ROM: Full Loose/Missing/Broken Teeth: No Heart: RRR Lungs: CTA Assessment and Plan Assessment Anesthesia Assessment: Anesthesia Plan Discussed Final Anesthetic Review NPO: Yes ASA Class: II Final Preanesthetic Review: Meds/Allgs Chart Reviewed, Consent Obtained/Reviewed and Anes Risks/Benef Reviewed Patient Risk: Low Procedure Risk: Low Anesthetic Plan Anesthetic Plan: MAC: Disposition: Standard PACU
[2023-07-12 12:01] VITALS: BP 148/83; PULSE 99; RESP 16; TEMP 36.5; O2SAT 98; BMI 27.1
[2023-07-12 12:11] LABS: UPreg QC Valid YES; Urine Pregnancy NEGATIVE (NEGATIVE)
--- NOTE | 2023-07-12 12:50 | MHC.SHP ---
Pre-Procedural Eval Section A - 24 Hr Update-Section A only Date of Service: 07/12/23 Section B - Complete if H&P > 30 days Chief Complaint: Personal history of other diseases of the digestiv Details of Present Illness: PMH: History of colitis Dysphagia GERD (gastroesophageal reflux disease) Surgical History: History of esophagogastroduodenoscopy (EGD) History of carpal tunnel release of both wrists History of repair of anterior cruciate ligament of left knee History of meniscectomy of left knee Hx of colonoscopy Present Medications: see Short Stay Collaborative assessment Allergies: Allergies Allergy/AdvReac Type Severity Reaction Status Date / Time Penicillins Allergy Mild RASH Verified 05/03/23 07:30 Sulfa (Sulfonamide Allergy Mild Rash Verified 05/03/23 07:30 Antibiotics) sulfamethoxazole Allergy Mild RASH Verified 05/03/23 07:30 [From Bactrim] trimethoprim [From Bactrim] Allergy Mild RASH Verified 05/03/23 07:30 vancomycin Allergy Unknown Unknown Verified 05/03/23 07:30 Review of Systems Review of Systems Comment: Ten point ROS negative Exam Exam Comment: Gen appear: No acute distress HEENT: no icterus Chest: No overt resp distress Abd: soft, nontender, nondistended Psych: Stable affect, answering questions appropriately Neuro: A/Ox3 noted to move all extremities spontaneously Ext: no peripheral edema Plan Diagnosis/Plan: Unchanged I have reviewed the history and physical and performed a pertinent physical examination on my patient. No changes have occurred unless specified. Time Spent With Patient Time: Total time managing care of this patient today ____ minutes.
--- NOTE | 2023-07-12 14:45 | P.OP_ITS ---
Operative Note Operative Note Date of Service: 07/12/23 Narrative: Procedure: Colonoscopy Indication: Colitis Endoscopist: Lacie Calabrese MD Anesthesia Provider: Leona Marcelo CRNA Anesthesia type: MAC Instrument: Olympus [id number]-H190L Consent: Indication, risks vs benefits, and alternatives were discussed with the patient who gave written informed consent to proceed. EKG, pulse, pulse oximetry and blood pressure were monitored throughout the procedure. Please see anesthesia flowsheet. Procedure: The patient was brought to the procedure room and placed in the left lateral decubitus position. IV medications were administered by the anesthesia provider in attendance. A digital rectal exam was performed which was normal. A distal attachment cap was affixed to the tip of the scope and the colonoscope was then inserted through the anus and advanced through the colon to the cecum at 75 cm,and terminal ileum. Appendiceal orifice and ileocecal valve were identified. Mucosa was carefully examined under high definition white light as the instrument was slowly withdrawn in a retrograde panoramic fashion. Retroflexion was performed in rectum. The procedure was not difficult. There were no immediate obvious complications. The quality of the prep was BBPS: 2+3+3 = adequate Withdrawal time 10 minutes. Limitations: No limitations. Findings: Mucosa: Normal to cecum and terminal ileum. Cold forceps biopsies were taken from the right and left side of the colon and sent for histology. Protruding lesions: * Medium internal hemorrhoids without stigmata of recent bleeding. Impression: 1. Normal colon and terminal ileum mucosa 2. Internal hemorrhoids Recommendations: - Follow path results. - Repeat colonoscopy for asymptomatic colorectal cancer screening in 10 years. - No evidence of chronic colitis endoscopically, likely had infectious vs ischemic colitis episode
[2023-07-12 14:50] VITALS: BP 111/63; PULSE 93; RESP 16; TEMP 36.5; O2SAT 99
[2023-07-12 15:05] VITALS: BP 106/73; PULSE 85; RESP 18; TEMP 36.5; O2SAT 99
== END 2023-07-12 15:32 | disposition home or self-care (01) ==
PROVIDERS: Nurse Practitioner; PCP Registered Nurse; Visit Provider Internal Medicine
PROC: 0DJD8ZZ Inspection of Lower Intestinal Tract, Via Natural or Artificial Opening Endoscopic (ICD-10-PCS; CPT 45378; principal; 2023-07-12 14:10)
DX: K64.8 Other hemorrhoids (principal); Z87.19 Personal history of other diseases of the digestive system; Z88.0 Allergy status to penicillin; Z88.2 Allergy status to sulfonamides
CPT/HCPCS: 45380; 81025; 88305; J2704

== ENCOUNTER → 2023-07-12 11:51 | Outpatient (BNV) | payer OTHER, SELFPAY | PROVIDERS: PCP Registered Nurse; Visit Provider Internal Medicine | DX: K52.9 Noninfective gastroenteritis and colitis, unspecified (principal); K64.8 Other hemorrhoids | CPT/HCPCS: 45380 ==

== ENCOUNTER 2024-02-19 09:13 | Emergency (ER) | payer BC, SELFPAY ==
--- NOTE | ~2024-02-19 | XR_ITS ---
EXAMINATION: XR LUMBOSACRAL SPINE CLINICAL INFORMATION: pain COMPARISON: None available. TECHNIQUE: Three views of the lumbosacral spine. FINDINGS: No fracture or destructive process or alignment abnormality. Vertebral body heights and disc space heights are preserved. XR/XR lumbar spine 2-3V IMPRESSION: Unremarkable Electronically signed by: Vlad Loyd MD 02/19/2024 10:53 AM JANE
--- NOTE | ~2024-02-19 | CT_ITS ---
EXAMINATION: CT ABDOMEN AND PELVIS WITH CONTRAST CLINICAL INFORMATION: Bloody bowel movements, history of colitis, low back pain. COMPARISON: 10/18/2018. TECHNIQUE: Multidetector volumetric images were obtained from the superior aspect of the liver through the pubic symphysis following administration 85 mL of Omnipaque 350 intravenous contrast. Sagittal and coronal reformatted images were obtained on the technologist's workstation. Oral contrast: No This CT examination was performed using dose optimization techniques as appropriate, variously including the following: *Automated exposure control *Adjustment of mA and/or kV according to patient size (this includes techniques or standardized protocols for targeted exams where dose is matched to indication/reason for exam; i.e. extremities or head) *Use of iterative reconstruction technique DLP: 587 mGy-cm FINDINGS: LUNG BASES: Lung bases are clear. Heart size is normal. GE junction is normal. No effusions. LIVER, GALLBLADDER, AND BILIARY TREE: Liver is normal in size. There is diffuse fatty infiltration. Minimal fatty sparing abutting the gallbladder fossa. Otherwise, no focal liver abnormalities. Patent hepatic and portal veins. No intra or extrahepatic biliary dilatation. The gallbladder is unremarkable with no evidence of radiopaque gallstones, gallbladder wall thickening, or obvious pericholecystic inflammatory changes. PANCREAS: Unremarkable. SPLEEN: Unremarkable. ADRENAL GLANDS: Unremarkable. KIDNEYS AND URETERS: The kidneys are normal in size, shape, and attenuation. No hydronephrosis, hydroureter, or calculi seen. No perinephric stranding. BLADDER: Unremarkable. GASTROINTESTINAL TRACT: -The GE junction, stomach, duodenum, and small bowel appear normal. -There is mild wall thickening and pericolonic inflammatory changes involving the descending colon, sigmoid colon, and rectum, findings suggestive of inflammatory or infectious segmental colitis. -The right colon and transverse colon appear normal. There are rare sigmoid diverticula. ABDOMINAL WALL: -Normal. No hernia or abnormal lymph nodes. LYMPH NODES: Normal. VASCULAR: Unremarkable. PELVIC VISCERA: Uterus demonstrates a dorsal, mid uterine segment 1.9 cm fibroid. Uterus and adnexal structures otherwise normal. OSSEOUS STRUCTURES: -Unremarkable. -No SI joint arthropathy. CT/CT abdomen pelvis w IV con IMPRESSION: 1. Wall thickening and mild pericolonic inflammation/hyperemia involving the descending and sigmoid colon, and rectum, findings consistent with inflammatory or infectious segmental colitis. 2. Diffuse fatty infiltration of the liver. No focal liver abnormality. 3. Dorsal 1.9 cm uterine fibroid. 4. Additional ancillary findings as discussed in the body of the report. Fleischner guidelines were followed. Electronically signed by: Morris Levin MD 02/19/2024 04:19 PM JANE
[2024-02-19 09:36] VITALS: BP 138/74; PULSE 79; RESP 20; TEMP 36.6; O2SAT 98; BMI 27.3
[2024-02-19 10:12] LABS: Basophils Percent Auto 0.3 % (0-2); Eosinophils Absolute Auto 0.1 X10*3/uL (0.0-0.4); Eosinophils Percent Auto 1.4 % (0-4); Hematocrit 42.7 % (37.0-47.0); Hemoglobin 14.4 g/dl (12.0-16.0); Imm Gran Abs Auto 0.04 X10*3/uL (0.00-0.03); Imm Gran Pct Auto 0.4 % (0.0-0.4); Lymphocytes Absolute Auto 2.6 X10*3/uL (1.2-4.9); Lymphocytes Percent Auto 27.1 % (20-40); MANUAL DIFF FLAG NO; Mean Corpuscular HGB Conc 33.7 g/dl (31.0-35.0); Mean Corpuscular Hemoglobin 30.3 pg (27.0-33.0); Mean Corpuscular Volume 89.9 fL (80.0-98.0); Mean Platelet Volume 8.5 fL (9.4-12.3); Monocytes Absolute Auto 0.7 X10*3/uL (0.1-1.2); Monocytes Percent Auto 7.7 % (2-11); Neutrophils Percent Auto 63.1 % (45-73); Platelet Count 327 X10*3/uL (160-400); Red Blood Count 4.75 X10*6/uL (4.20-5.50); Red Cell Distribution Width 12.5 % (11.0-16.0); White Blood Count 9.6 X10*3/uL (4.8-10.8)
[2024-02-19 10:29] LABS: Anion Gap 15 (12-20); Blood Urea Nitrogen 10 mg/dL (9-16); Calcium 8.8 mg/dL (8.4-10.2); Carbon Dioxide 25 mmol/L (22-29); Chloride 103 mmol/L (96-108); Creatinine Clr Calc Pharmacy 76.8; Estimated Glomerular Filt Rate > 60; Glucose Random 98 mg/dL (60-115); Potassium 3.8 mmol/L (3.3-5.1); Sodium 139 mmol/L (135-145)
--- NOTE | 2024-02-19 13:22 | ED_ITS ---
HPI - General Adult General Chief complaint: General Medical Stated complaint: Back pain Time Seen by Provider: 02/19/24 13:11 Source: patient Mode of arrival: ambulatory Limitations: no limitations History of Present Illness ED Provider: Ervin Almaraz PA-C HPI narrative: 48-year-old female with a history of recurrent colitis, GERD who presents to the ER for evaluation of acute onset of lower back pain that started last night when she was wrapping Denis gifts on the ground. Patient reports when she went to get up she had immediate pain in her right lower back with limited range of motion. She took a Flexeril and Motrin with minimal relief. She reports this morning the back pain worsened. She then had 4 episodes of loose, bloody bowel movements with some nausea. No significant abdominal pain. No fever or chills. She is not on anticoagulation. She reports this is similar to her prior colitis presentations in the past. She denies any bowel or bladder incontinence, numbness or tingling in her groin, no fevers. MD complaint: Bloody bowel movements, low back pain Onset (ago): hour(s) Location: back Radiation: non-radiation Severity: severe Severity scale (1-10): 10 Quality: stabbing Pain Consistency: constant Relieving factors: rest Exacerbating factors: movement Associated symptoms: nausea/vomiting Treatments prior to arrival: none Related Data Home Medications ?Medication ?Instructions ?Recorded ?Confirmed semaglutide 1 mg/dose (4 mg/3 mL) 1 mg subcut QWEEK 07/10/23 07/10/23 subcutaneous pen injector (Ozempic) Previous Rx's ?Medication ?Instructions ?Recorded pantoprazole 20 mg tablet,delayed 40 mg (2 x 20 mg) PO ONCE 30 days 02/16/22 release #60 tabs sucralfate 1 gram tablet 1 g PO QIDACHS PRN reflux 21 days 05/02/22 #90 tabs levofloxacin 500 mg tablet 500 mg PO DAILY 7 days #7 tabs 02/19/24 methocarbamol 500 mg tablet 500 mg PO Q8H PRN muscle 02/19/24 spasticity #10 tabs metronidazole 500 mg tablet 500 mg PO BID 7 days #14 tabs 02/19/24 oxycodone 5 mg tablet 5 mg PO Q6H PRN severe pain (scale 02/19/24 score 7-10) #7 tabs Allergies Allergy/AdvReac Type Severity Reaction Status Date / Time Penicillins Allergy Mild RASH Verified 02/19/24 09:39 Sulfa (Sulfonamide Allergy Mild Rash Verified 02/19/24 09:39 Antibiotics) sulfamethoxazole Allergy Mild RASH Verified 02/19/24 09:39 [From Bactrim] trimethoprim [From Bactrim] Allergy Mild RASH Verified 02/19/24 09:39 vancomycin Allergy Unknown Unknown Verified 02/19/24 09:39 Review of Systems 2 Review of Systems: Yes all other systems are reviewed and are negative [facility] Past Medical History Medical History (Updated 02/19/24 @ 16:00 by JOEY Chen) History of colitis Dysphagia GERD (gastroesophageal reflux disease) Surgical History (Updated 07/23/23 @ 10:24 by Drea Higginbotham) History of esophagogastroduodenoscopy (EGD) History of carpal tunnel release of both wrists History of repair of anterior cruciate ligament of left knee History of meniscectomy of left knee Hx of colonoscopy Social History Social History Household Members Other:: , 21 y/o daughter Alcohol intake: current Patient Tobacco Use Status: Former Tobacco user Tobacco use type: Cigarette Advance Directives: Yes Advance Directives Information Provided: Yes Advance Directives on File: No Current occupational status: employed 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 Physical Exam ED Vital Signs: Vital Signs - 24 hr 02/19/24 09:36 02/19/24 16:00 02/19/24 16:26 Temperature 97.9 F 97.8 F 97.8 F Pulse Rate 79 90 90 Respiratory Rate 20 20 20 Blood Pressure 138/74 120/54 L 120/54 L Pulse Oximetry 98 98 98 Oxygen Delivery Method Room Air Room Air Room Air BMI result Body Mass Index 27.3 Appearance: Alert. Oriented X3. No acute distress. Head: normocephalic, atraumatic. Eyes: Pupils equal, round and reactive to light. ENT: Pharynx normal. No tonsillar swelling or exudate. Neck: Normal inspection. Neck supple. CVS: Normal heart rate and rhythm. Pulses normal. Respiratory: No respiratory distress. Breath sounds normal. Abdomen: Soft with mild tenderness to the epigastric area, no lower quadrant tenderness, no rebound or guarding. Normal active +BS x4 jigna deferred Skin: Skin warm and dry. Normal skin color. Normal skin turgor. No rashes. Extremities: No lower extremity edema. No joint swelling. Neuro/psych: Oriented X 3. No motor deficit. No sensory deficit. CN II-XII intact. Normal speech and cognition. Medications Administered Discontinued Medications Generic Name Dose Route Start Last Admin Trade Name Teodoro PRN Reason Stop Dose Admin Iohexol 100 ml 02/19/24 14:34 02/19/24 14:34 Iohexol 350 Mg/Ml 100 Ml Infus..Btl IV 02/19/24 14:35 85 ml ONCE ONE Administration Morphine Sulfate 4 mg 02/19/24 13:27 02/19/24 13:44 Morphine Sulfate 4 Mg/Ml Cartridge IVPUSH 02/19/24 13:28 4 mg ONCE ONE Administration Protocol Ondansetron HCl 4 mg 02/19/24 13:27 02/19/24 13:44 Ondansetron Hcl 4 Mg/2 Ml Vial IVPUSH 02/19/24 13:28 4 mg ONCE ONE Administration Medical Decision Making Medical Decision Making MDM Narrative: 48-year-old female presents to the ER for evaluation of right lower back pain that started yesterday when she was on the ground while wrapping Denis presents. No red flag symptoms of low back pain. Patient subsequently developed bright red blood per rectum x4 today after taking 1 dose of Motrin yesterday. History of colitis that she reports has had similar presentations in the past. Lab workup today is reassuring with stable H&H, no anemia. No leukocytosis. No bleeding here. No abdominal pain. She was given IV morphine and Zofran for her back pain with improvement in her symptoms. CT scan of her abdomen and pelvis was performed and results are showing colitis. she reports levofloxacin/flagyl worked well for her in the past. will treat msk back pain w/ muscle relaxers and short course oxycodone. avoid nsaid w/ gib. stable for d/c home with PCP and GI Differential Diagnosis Differential Diagnoses: The differential diagnosis associated with the presentation includes Colitis, hemorrhoid, diverticulosis/diverticulitis, colon cancer, anal fissure Inflammatory disorders, malignancy, trauma, osteoporosis, nerve root compression, radiculopathy, plexopathy, degenerative disc disease, disc herniation, spinal stenosis, sacroiliac joint dysfunction, facet joint injury, and less likely infection?like abscess or diskitis Admission/Observation Consideration of admission/observation: Escalation of care including admission/observation considered Lab Data MDM Lab Attestation statement: I reviewed the patient's lab results. No anemia, no leukocytosis, renal function normal 02/19/24 10:06 02/19/24 10:06 Labs: Lab Results 02/19/24 Range/Units 10:06 WBC 9.6 (4.8-10.8) X10*3/uL RBC 4.75 (4.20-5.50) X10*6/uL Hgb 14.4 (12.0-16.0) g/dl Hct 42.7 (37.0-47.0) % MCV 89.9 (80.0-98.0) fL MCH 30.3 (27.0-33.0) pg MCHC 33.7 (31.0-35.0) g/dl RDW 12.5 (11.0-16.0) % Plt Count 327 (160-400) X10*3/uL MPV 8.5 L (9.4-12.3) fL Immature Gran % (Auto) 0.4 (0.0-0.4) % Neut % (Auto) 63.1 (45-73) % Lymph % (Auto) 27.1 (20-40) % [place] % (Auto) 7.7 (2-11) % Eos % (Auto) 1.4 (0-4) % Baso % (Auto) 0.3 (0-2) % Lymph # (Auto) 2.6 (1.2-4.9) X10*3/uL [place] # (Auto) 0.7 (0.1-1.2) X10*3/uL Eos # (Auto) 0.1 (0.0-0.4) X10*3/uL Baso # (Auto) 0.0 (0.0-0.2) X10*3/uL Abs Immat Gran (auto) 0.04 H (0.00-0.03) X10*3/uL Absolute Neuts (auto) 6.0 (2.0-8.3) x10*3/uL Absolute Nucleated RBC 0.000 (0.0-0.012) X10*3/uL Nucleated RBC % (auto) 0.0 (0.0-0.2) /100WBC Sodium 139 (135-145) mmol/L Potassium 3.8 (3.3-5.1) mmol/L Chloride 103 (96-108) mmol/L Carbon Dioxide 25 (22-29) mmol/L Anion Gap 15 (12-20) BUN 10 (9-16) mg/dL Creatinine 0.89 (0.5-1.4) mg/dL Estim Creat Clear Calc 76.8 Estimated GFR > 60 Random Glucose 98 (60-115) mg/dL Calcium 8.8 D (8.4-10.2) mg/dL Beta HCG, Quant < 2 mIU/mL Independent Interpretation I performed an independent interpretation of an: CT Scan Interpretation: no colonic abscess or significant wall stranding apprecaited Radiology Impression Discussion of test interpretation with radiology: I have reviewed the radiologist's reading. External Record Review External record reviewed: Office record, Outpatient record, Prior outpatient labs and Prior outpatient radiology Prescription Management I considered prescription management with: Pain Medication Chronic Conditions Patient?s care impacted by: Other (History of colitis) Critical Care Time Critical Care Time Critical Care Time: No Discharge Plan Discharge Clinical Impression: Colitis Acute lumbar myofascial strain Qualifiers: Encounter type: initial encounter Qualified Code(s): S39.012A - Strain of muscle, fascia and tendon of lower back, initial encounter Patient Disposition: Home, Self-Care Instructions: Acute Low Back Pain (ED), Colitis (ED) Additional Instructions: your labs were reassuring with no anemia or leukocytosis your CT scan results are still pending if there are any significant concerns with the read, we will call you Your back pain is most likely due to muscle strain and spasm. Use ice several times per day for 20 minutes at a time for the next 48 hours and then change to heat. Take medications as prescribed to help with pain and discomfort. Follow up with your Primary Care Doctor this week. You can also try Chiropractor - Xander Echevarria in [facility] [place] - [phone] If you develop new or worsening symptoms call 911 or come back to the ER for further evaluation. Prescriptions: New metronidazole 500 mg tablet 500 mg PO BID 7 Days Qty: 14 0RF levofloxacin 500 mg tablet 500 mg PO DAILY 7 Days Qty: 7 0RF oxycodone 5 mg tablet 5 mg PO Q6H PRN (Reason: severe pain (scale score 7-10)) Qty: 7 0RF Rx Instructions: Partial Fill upon patient request. methocarbamol 500 mg tablet 500 mg PO Q8H PRN (Reason: muscle spasticity) Qty: 10 0RF No Action sucralfate 1 gram tablet 1 g PO QIDACHS PRN (Reason: reflux) 21 Days Qty: 90 1RF Ozempic 1 mg/dose (4 mg/3 mL) Pen Injector 1 mg SUBCUT QWEEK Rx Instructions: takes on pantoprazole 20 mg tablet,delayed release (DR/EC) 40 mg PO ONCE 30 Days Qty: 60 6RF Referrals: Germania Lazo FNP-BC [Primary Care Provider] - Stand Alone Forms: Work/School Release Interventions: ED Discharge Assessment Last Done: 02/19/24 16:26 Discharge Date/Time: 02/19/24 16:27 Print Language: Greenlandic
[2024-02-19] MEDS: Morphine Sulfate 4 MG/ML CARTRIDGE IVPUSH (13:44)
[2024-02-19] MEDS: ondansetron HCL 4 MG/2 ML VIAL IVPUSH (13:44)
[2024-02-19 14:03] LABS: HCG Quantitative < 2 mIU/mL
[2024-02-19] MEDS: iohexoL 350 MG/ML 100 ML INFUS..BTL IV (14:34)
[2024-02-19 16:00] VITALS: BP 120/54; PULSE 90; RESP 20; TEMP 36.6; O2SAT 98
[2024-02-19 16:26] VITALS: BP 120/54; PULSE 90; RESP 20; TEMP 36.6; O2SAT 98
== END 2024-02-19 16:27 | disposition home or self-care (01) ==
PROVIDERS: Physician Assistant; Emergency Provider Emergency Medicine; PCP Registered Nurse
DX: S39.012A Strain of muscle, fascia and tendon of lower back, initial encounter (principal); X58.XXXA Exposure to other specified factors, initial encounter; Y93.9 Activity, unspecified; Y92.9 Unspecified place or not applicable; Y99.9 Unspecified external cause status; K92.1 Melena; K21.9 Gastro-esophageal reflux disease without esophagitis
CPT/HCPCS: 36415; 72100; 74177; 80048; 84702; 85025; 96374; 96375; 99283; 99284; J2270; J2405; Q9967

== ENCOUNTER → 2024-02-19 13:11 | Outpatient (BNV) | payer BC, SELFPAY | PROVIDERS: Emergency Provider Emergency Medicine; PCP Registered Nurse; Visit Provider Radiology Diagnostic Radiology | DX: K92.1 Melena (principal); M54.50 Low back pain, unspecified | CPT/HCPCS: 74177 ==